=== PATIENT | female | born 1980 | race Caucasian/White ===

== ENCOUNTER 2019-03-13 17:13 | Emergency (ER) | payer OTHER, BC, SELFPAY ==
[2019-03-13 17:36] VITALS: BP 141/89; PULSE 100; RESP 18; TEMP 37.1; O2SAT 98
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
[2019-03-13 18:13] VITALS: BP 129/92; PULSE 76; RESP 16; O2SAT 98
== END 2019-03-13 18:18 | disposition home or self-care (01) ==
PROVIDERS: Emergency Provider Nurse Practitioner; PCP Family Medicine
DX: S13.4XXA Sprain of ligaments of cervical spine, initial encounter (principal); S39.012A Strain of muscle, fascia and tendon of lower back, initial encounter; V59.59XA Passenger in pick-up truck or van injured in collision with other motor vehicles in traffic accident, initial encounter
CPT/HCPCS: 99282; 99283

== ENCOUNTER → 2020-06-05 12:38 | Outpatient (CLI) | payer BC, SELFPAY ==
[2020-06-05 13:17] LABS: Hemoglobin A1C% w Est Avg Glu 8.4 % (4.0-6.0)
[2020-06-05 13:39] LABS: BUN Creatinine Ratio 24.4 (6-22); Blood Urea Nitrogen 21 mg/dL (7-17); Carbon Dioxide 27 mmol/L (22-32); Chloride 99 mmol/L (98-107); Cholesterol 220 mg/dL (140-199); Estimated Glomerular Filt Rate > 60.0 mL/min (>60); Glucose 328 mg/dL (70-100); HDL Cholesterol 77 mg/dL (40-60); HEMOLYSIS < 15 (0-50); LDL Cholesterol Calculated 117 mg/dL (<100); Potassium 4.1 mmol/L (3.4-5.1); Sodium 134 mmol/L (137-145); Triglycerides 128 mg/dL (35-150)
[2020-06-05 13:58] LABS: Free T4, Direct Thyroxine 1.18 ng/dL (0.78-2.19)
[2020-06-05 14:11] LABS: Thyroid Stimulating Hormone 1.18 uIU/mL (0.47-4.68)
[2020-06-05 15:28] LABS: Creatinine Urine Random 288.8 mg/dL
[2020-06-05 15:31] LABS: Microalbumi Creatinin Ratio Ur 7.9 ug/mg CR (<30); Microalbumin Urine Random 2.3 mg/dL (0-1.6)
== END ==
PROVIDERS: PCP Family Medicine; Referring Provider Internal Medicine; Visit Provider Internal Medicine
DX: E03.9 Hypothyroidism, unspecified (principal); E10.65 Type 1 diabetes mellitus with hyperglycemia
CPT/HCPCS: 36415; 80048; 80061; 82043; 82570; 83036; 84439; 84443

== ENCOUNTER → 2020-09-04 09:32 | Outpatient (CLI) | payer BC, SELFPAY ==
[2020-09-04 11:23] LABS: Hemoglobin A1C% w Est Avg Glu 8.1 % (4.0-6.0)
[2020-09-04 12:11] LABS: Cholesterol 209 mg/dL (140-199); HDL Cholesterol 75 mg/dL (40-60); LDL Cholesterol Calculated 113 mg/dL (<100); Triglycerides 106 mg/dL (35-150)
== END ==
PROVIDERS: PCP Family Medicine; Referring Provider Internal Medicine; Visit Provider Internal Medicine
DX: E78.5 Hyperlipidemia, unspecified (principal)
CPT/HCPCS: 36415; 80061; 83036

== ENCOUNTER → 2020-12-09 09:11 | Outpatient (CLI) | payer BC, SELFPAY ==
[2020-12-09 11:17] LABS: Blood Urea Nitrogen 20 mg/dL (7-17); Calcium 9.6 mg/dL (8.4-10.2); Carbon Dioxide 26 mmol/L (22-32); Chloride 104 mmol/L (98-107); Cholesterol 223 mg/dL (140-199); Estimated Glomerular Filt Rate > 60.0 mL/min (>60); Glucose 85 mg/dL (70-100); HDL Cholesterol 80 mg/dL (40-60); HEMOLYSIS < 15 (0-50); LDL Cholesterol Calculated 128 mg/dL (<100); Potassium 4.6 mmol/L (3.4-5.1); Sodium 137 mmol/L (137-145); Triglycerides 73 mg/dL (35-150)
[2020-12-09 11:18] LABS: Hemoglobin A1C% w Est Avg Glu 7.7 % (4.0-6.0)
== END ==
PROVIDERS: PCP Family Medicine; Referring Provider Internal Medicine; Visit Provider Internal Medicine
DX: E10.65 Type 1 diabetes mellitus with hyperglycemia (principal)
CPT/HCPCS: 36415; 80048; 80061; 83036

== ENCOUNTER → 2021-03-31 10:56 | Outpatient (CLI) | payer OTHER, SELFPAY ==
[2021-03-31 12:11] LABS: Hemoglobin A1C% w Est Avg Glu 7.4 % (4.0-6.0)
[2021-03-31 12:12] LABS: Cholesterol 150 mg/dL (140-199); HDL Cholesterol 83 mg/dL (40-60); LDL Cholesterol Calculated 49 mg/dL (<100); Triglycerides 88 mg/dL (35-150)
== END ==
PROVIDERS: PCP Family Medicine; Referring Provider Internal Medicine; Visit Provider Internal Medicine
DX: E10.65 Type 1 diabetes mellitus with hyperglycemia (principal)
CPT/HCPCS: 36415; 80061; 83036

== ENCOUNTER 2021-08-20 10:43 | Emergency (ER) | payer OTHER, SELFPAY ==
[2021-08-20 11:10] VITALS: BP 161/85; PULSE 92; RESP 18; TEMP 37.1; O2SAT 99; BMI 30.5
[2021-08-20] MEDS: TET,DIPH,PERTUSS(ACELL),VAC/PF 0.5 ML SYRINGE IM (12:27)
--- NOTE | 2021-08-20 12:36 | ED_ITS ---
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 Patient states that the dog got its leg caught in the fence and turned around and bit her thinking it was being attacked, she knows that this dog is up-to-date on its rabies vaccination. The dog was not unnecessarily provoked, the patient states that the dog actually got hurt also. And patient was wearing jeans at the time has several small puncture wounds to the left lower aspect of her leg. She states 1 of them in was bleeding for a long time and to pressure to get it to stop. Patient is a diabetic type 1 with an insulin pump. Patient is allergic to penicillin, states she does not remember when her last tetanus was and is willing to update this today. Related Data Home Medications Medication Instructions Recorded Confirmed ACETAMINOPHEN (#TYLENOL) 0 mg PO PRN #0 03/25/11 04/12/21 CHOLECALCIFEROL (VITAMIN D3) 4,000 iu PO Q DAY #0 01/09/12 04/12/21 (Vitamin D) Previous Rx's Medication Instructions Recorded insulin aspart U-100 100 unit/mL 50 - 60 u SQ SEE INSTRUCTIONS #6 05/30/16 subcutaneous solution (Novolog vial U-100 Insulin aspart) [Jorje ContourTestStr] box 5XD #200 09/18/16 loratadine-pseudoephedrine ER 10 1 tab PO QDAY #90 tab 06/27/17 mg-240 mg tablet,extended [id number] (Claritin-D 24 Hour) cyclobenzaprine 10 mg tablet 10 mg PO TID #14 tab 03/13/19 azelastine 137 mcg (0.1 %) nasal 1 spray INTRANASAL BID #30 ml 10/21/20 spray aerosol prednisone 20 mg tablet 20 mg PO DAILY #5 tab 03/27/21 fluoxetine 40 mg capsule See Rx Instructions .ROUTE 04/09/21 .COMPLEX #90 cap levothyroxine 25 mcg tablet See Rx Instructions .ROUTE 06/25/21 .COMPLEX #90 tab albuterol sulfate 90 mcg/actuation See Rx Instructions .ROUTE 06/29/21 aerosol inhaler .COMPLEX #18 g spironolactone 50 mg tablet See Rx Instructions .ROUTE 07/25/21 .COMPLEX #90 tab doxycycline hyclate 100 mg tablet 100 mg PO BID 5 Days #10 tab 08/20/21 mupirocin 2 % topical ointment 1 applic TOPICAL BID #15 g 08/20/21 Allergies Allergy/AdvReac Type Severity Reaction Status Date / Time Penicillins [PENICILLINS] Allergy Unknown Verified 08/20/21 11:10 Review of Systems <GABI Morrow - Last Filed: 08/20/21 15:24> Review of Systems Narrative: General: denies fever, chills, malaise, sweats, fatigue Head/Neck: denies headache, neck pain, dizziness Eyes: denies visual changes, eye pain Cardio: denies chest pain, palpitations, edema Respiratory: denies dyspnea, cough, orthopnea GI: denies abdominal pain, nausea, vomiting, or diarrhea : denies dysuria, hematuria, urinary retention, frequency or incontinence MSK: denies joint pain, muscle weakness Skin: denies rash, itching, multiple puncture wounds the posterior aspect of her left lower leg Neuro: denies numbness, tingling Patient History <GABI Morrow - Last Filed: 08/20/21 15:24> Medical History Anxiety Hypothyroidism Type 1 diabetes mellitus Surgical History History of third molar tooth extraction Family History Sister Age: 34 OCD (obsessive compulsive disorder) Anorexia Social History marital status: number of children: 2 household members: family lives independently: Yes caregiver/support person: No housing: house education level: college occupational status: employed Smoking Status: Never smoker second hand exposure: No alcohol intake: current substance use type: does not use Smoking Status: Never smoker Substance Use Type: does not use Exam <ARMANI MorrowP - Last Filed: 08/20/21 15:24> Narrative Exam Narrative: Independently reviewed vitals signs and nursing notes. General: cooperative, comfortable, in no acute distress, well developed and well groomed Head: atraumatic, symmetrical facial expressions Neck: supple, atraumatic, without lymphadenopathy. Eyes: pupils equal round and reactive, EOMI, conjunctiva normal Nose: nares patent, no rhinorrhea Mouth/Throat: uvula midline, moist mucus membranes Cardiovascular: regular rate and rhythm, no peripheral edema, warm extremities Respiratory: normal effort, able to speak in complete sentences, no audible wheezing, stridor, or rales. No retractions or tachypnea. MSK: moves all extremities, ambulatory w/steady gait, neurovascularly intact, no weakness Skin: brisk capillary refill, no rash, no erythema, left lower extremity with 1 2 cm puncture wound to the posterior aspect just above her calf near her knee, bleeding is controlled but the subcutaneous tissue was showing, 1 puncture wound on the lateral aspect of her left her leg is losing blood, requires manual pressure, approximately 1 cm. Other puncture wounds are superficial, not bleeding, all wounds were cleaned with normal saline by myself, thoroughly irrigated. After closer appearance, the posterior puncture wound of 2 cm and the lateral wound both need suture repair. I completed this with 2 loose sutures to the posterior 2 cm laceration and 1 loose suture to the lateral leg wound. Patient tolerated well Neuro: normal speech and cognition, A&O x3, normal tone Psych: mental status is grossly normal, congruent mood, normal affect, pleasant and cooperative Initial Vital Signs Initial Vital Signs: Vital Signs Temperature 98.7 F 08/20/21 11:10 Pulse Rate 92 H 08/20/21 11:10 Respiratory Rate 18 08/20/21 11:10 Blood Pressure 161/85 H 08/20/21 11:10 Pulse Oximetry 99 08/20/21 11:10 <Serina Wood DO - Last Filed: 08/21/21 19:22> Initial Vital Signs Initial Vital Signs: Vital Signs Temperature 98.7 F 08/20/21 11:10 Pulse Rate 92 H 08/20/21 11:10 Respiratory Rate 18 08/20/21 11:10 Blood Pressure 161/85 H 08/20/21 11:10 Pulse Oximetry 99 08/20/21 11:10 Procedures <ARMANI MorrowP - Last Filed: 08/20/21 15:24> Laceration Repair Laceration 1: Site: lower extremity Side (If applicable): left Size (cm): 2 Description: irregular Depth: simple, single layer Local Anesthetic: lidocaine 1% and with bicarb Amount of anesthesia used (mL): 1 Pre-repair: wound explored, irrigated extensively and deep structures intact Skin layer closed with: nylon Skin layer suture size: 5-0 Number of sutures: 2 Technique: simple, interrupted (Loose stitch to allow for drainage) and other Laceration 2: Site: lower extremity Side (If applicable): left (Lateral) Size (cm): 1 Description: irregular Depth: simple, single layer Local Anesthetic: lidocaine 1% and with bicarb Amount of anesthesia used (mL): 1 Pre-repair: wound explored, irrigated extensively and deep structures intact Skin layer closed with: nylon Skin layer suture size: 5-0 Number of sutures: 1 Technique: simple, interrupted (Loose stitch) Course <Raya Nix PROFILER - Last Filed: 08/20/21 15:24> Orders Ordered: Discontinued Medications Bacitracin (Bacitracin Oint 0.9 Gm Pckt) 1 applic TOP NOW ONE Stop: 08/20/21 12:36 Last Admin: 08/20/21 13:04 Dose: 1 applic Documented by: SYDNEY Diphtheria/Tetanus/Acell Pertussis (Tet,Diph,Pertuss(Acell),Vac/Pf 0.5 Ml Syringe) 0.5 ml IM .ONCE ONE Stop: 08/20/21 11:18 Last Admin: 08/20/21 12:27 Dose: 0.5 ml Documented by: SHANIKA Lidocaine/Sodium Bicarbonate (Lido 1%/Sod Bicarb 8.4% (10ml) 10 Ml Syringe) 10 ml INJ NOW ONE Stop: 08/20/21 12:45 Last Admin: 08/20/21 13:03 Dose: 10 ml Documented by: SYDNEY Vital Signs Vital signs: Vital Signs - 8 hr 08/20/21 11:10 Temperature 98.7 F Pulse Rate 92 H Respiratory Rate 18 Blood Pressure 161/85 H Pulse Oximetry 99 <Serina Wood DO - Last Filed: 08/21/21 19:22> Orders Ordered: Discontinued Medications Bacitracin (Bacitracin Oint 0.9 Gm Pckt) 1 applic TOP NOW ONE Stop: 08/20/21 12:36 Last Admin: 08/20/21 13:04 Dose: 1 applic Documented by: SYDNEY Diphtheria/Tetanus/Acell Pertussis (Tet,Diph,Pertuss(Acell),Vac/Pf 0.5 Ml Syringe) 0.5 ml IM .ONCE ONE Stop: 08/20/21 11:18 Last Admin: 08/20/21 12:27 Dose: 0.5 ml Documented by: SHANIKA Lidocaine/Sodium Bicarbonate (Lido 1%/Sod Bicarb 8.4% (10ml) 10 Ml Syringe) 10 ml INJ NOW ONE Stop: 08/20/21 12:45 Last Admin: 08/20/21 13:03 Dose: 10 ml Documented by: SYDNEY Vital Signs Vital signs: Vital Signs - 8 hr 08/20/21 11:10 Temperature 98.7 F Pulse Rate 92 H Respiratory Rate 18 Blood Pressure 161/85 H Pulse Oximetry 99 MDM - Animal Bite <GABI Morrow - Last Filed: 08/20/21 15:24> [facility] Narrative Medical decision making narrative: This is a 41-year-old female with history of type 1 diabetes on insulin pump who presents to the emergency department after dog bite to her left lower extremity. 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 Otherwise the dog was up throat, rabies vaccination is up-to-date for the dog. Patient's tetanus was updated today, she required 2 sutures to the 2 cm laceration to the posterior calf of her left lower extremity, and once loose suture to the lateral wound on the right due to subcutaneous tissue showing, and bleeding. These were cleaned well with normal saline, patient was given doxycycline prophylaxis for 5 days and mupirocin ointment. She became faint during the procedure, was [place] back, was given water and juice, tolerated this well, her blood sugar was stable in she was comfortable by the time of discharge without any falls. She did not have any vomiting. Patient is appropriate and amenable to discharge home. Vital signs are stable on repeat examination is unremarkable. Patient has been informed of results. Patient has been given strict return to ER precautions for any new or worsening symptoms. Patient understands to follow up closely with outpatient providers as instructed. Patient understands plan and agrees to discharge home. All questions and concerns answered at this time. Discharge Plan Departure Patient Disposition: Home Clinical Impression: Open wound of lower leg due to dog bite Instructions: DI for Dog Bite Activity Restrictions/Additional Instructions: *You have been diagnosed with puncture wounds to her left leg. Please keep these covered with a Band-Aid some antibiotic ointment. Your tetanus is good for the next 10 years, and doxycycline as recommended for 3-5 days. Due to the number of these, all DP the full course. Please shower as normal, try to avoid contaminating open wounds. Please follow-up with your primary care provider if you have any complications from this. If you notice any streaking or worsening redness, pus coming from these wounds, please continue taking your antibiotic for the full course and come back for another evaluation. Please try stay hydrated while taking medications. 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 *What to do: *Please continue to take your regular medications as directed. [ x] New medication prescriptions sent to your pharmacy: [[facility] ] [ ] New medication written as a paper prescription [ ] No new medications given *Please follow up with your primary care provider in 2-3 days, call for an appointment. Let them know you were seen in the Emergency Department and that we asked that you be seen for follow-up. We will electronically transmit a record of today's note if your PCP is in our system *If you do not have a primary care provider please contact [phone] to establish care with one of the [facility] primary care providers. *Return to Emergency Department if you should have any new, worsening or concerning symptoms, such as [fever greater than 101F, chills, worsening pain, persistent vomiting or other bothersome symptoms] Prescriptions: New doxycycline hyclate 100 mg tablet 100 mg PO BID 5 Days Qty: 10 0RF mupirocin 2 % ointment 1 applic topical BID Qty: 15 0RF No Action prednisone 20 mg tablet 20 mg PO DAILY Qty: 5 0RF azelastine 137 mcg (0.1 %) aerosol,spray 1 spray intranasal BID Qty: 30 0RF Rx Instructions: administer into each nostril ACETAMINOPHEN (#TYLENOL) 0 mg PO PRN Qty: 0 0RF CHOLECALCIFEROL (VITAMIN D3) (Vitamin D) 4,000 iu PO Q DAY Qty: 0 0RF insulin aspart U-100 [Novolog U-100 Insulin aspart] 100 UNIT/1 ML solution 50 - 60 u SQ SEE INSTRUCTIONS Qty: 6 3RF [Jorje ContourTestStr] 5XD Qty: 200 1RF loratadine-pseudoephedrine [Claritin-D 24 Hour] 10 MG/240 MG tablet extended release 24 hr 1 tab PO QDAY Qty: 90 3RF fluoxetine 40 mg capsule See Rx Instructions .ROUTE .COMPLEX Qty: 90 3RF Dose Instruction: TAKE 1 CAPSULE BY MOUTH DAILY Rx Instructions: TAKE 1 CAPSULE BY MOUTH DAILY levothyroxine 25 mcg tablet See Rx Instructions .ROUTE .COMPLEX Qty: 90 3RF Dose Instruction: TAKE 1 TABLET BY MOUTH EVERY MORNING Rx Instructions: TAKE 1 TABLET BY MOUTH EVERY MORNING albuterol sulfate 90 mcg/actuation HFA aerosol inhaler See Rx Instructions .ROUTE .COMPLEX Qty: 18 3RF Dose Instruction: INHALE 2 PUFFS INTO THE LUNGS EVERY 6 TO 8 HOURS NEEDED FOR SHORTNESS OF BREATH OR WHEEZING Rx Instructions: INHALE 2 PUFFS INTO THE LUNGS EVERY 6 TO 8 HOURS NEEDED FOR SHORTNESS OF BREATH OR WHEEZING spironolactone 50 mg tablet See Rx Instructions .ROUTE .COMPLEX Qty: 90 1RF Dose Instruction: TAKE 1 TABLET BY MOUTH DAILY Rx Instructions: TAKE 1 TABLET BY MOUTH DAILY cyclobenzaprine 10 mg tablet 10 mg PO TID Qty: 14 0RF Referrals: Ally Soriano MD [Primary Care Provider] - <Serina Wood DO - Last Filed: 08/21/21 19:22> Cosign ED Attending Cosopalature Attestation: I was immediately available in the department for consultation. Documentation has been reviewed.
[2021-08-20] MEDS: LIDO 1%/SOD BICARB 8.4% (10ML) 10 ML SYRINGE INJ (13:03)
[2021-08-20] MEDS: BACITRACIN OINT 0.9 GM PCKT 1 APPLIC TOP (13:04)
== END 2021-08-20 13:25 | disposition home or self-care (01) ==
PROVIDERS: Emergency Provider Nurse Practitioner Critical Care Medicine; PCP Family Medicine
DX: S81.852A Open bite, left lower leg, initial encounter (principal); W54.0XXA Bitten by dog, initial encounter; Y99.0 Civilian activity done for income or pay; Z23 Encounter for immunization
CPT/HCPCS: 12002; 90471; 99283; 90715

== ENCOUNTER 2022-01-04 10:36 | Emergency (ER) | payer OTHER, SELFPAY ==
[2022-01-04 10:38] VITALS: BP 137/84; PULSE 90; RESP 15; TEMP 36; O2SAT 96; BMI 30.5
--- NOTE | 2022-01-04 10:41 | DI.RAD.S_ITS ---
PROCEDURE: XR HAND RT MIN 3V INDICATIONS: dog bite, laceration top of hand TECHNIQUE: 3 views of the hand(s) acquired. COMPARISON: None. FINDINGS: Bones: No fractures or dislocations. Carpal bones are normally aligned. No suspicious bony lesions. Soft tissues: No suspicious soft tissue calcifications. No unexpected radiopaque foreign bodies. IMPRESSION: No suspicious bony lesions or unexpected radiopaque foreign bodies. Dictated by: Wendy Olmstead M.D. on 01/04/2022 at 10:59 Approved by: Wendy Olmstead M.D. on 01/04/2022 at 10:59
--- NOTE | 2022-01-04 13:07 | ED_ITS ---
HPI - Animal Bite <Ramsey Michelle PA-C - Last Filed: 01/04/22 20:14> General Chief Complaint: Animal Bite Stated Complaint: Dog bite Time Seen by Provider: 01/04/22 12:05 Source: patient Mode of arrival: Ambulatory History of Present Illness HPI narrative: Patient is a 41-year-old female who presents to the emergency room today with complaint of laceration to her right hand. Patient states she was bit by a dog at about 10:30 a.m. this morning as she runs a dog care facility. Patient admits to having a Tdap done in June of this year that was also related to a prior dog bite. Took antibiotics at that time and was seen at this ER no concerns. Patient also admits to a history of type 2 diabetes is well controlled on meds and also admits to an allergy to penicillin. Related Data Home Medications Medication Instructions Recorded Confirmed ACETAMINOPHEN (#TYLENOL) 0 mg PO PRN ##0 03/25/11 08/27/21 CHOLECALCIFEROL (VITAMIN D3) 4,000 iu PO Q DAY ##0 01/09/12 08/27/21 (Vitamin D) Previous Rx's Medication Instructions Recorded insulin aspart U-100 100 unit/mL 50 - 60 u SQ SEE INSTRUCTIONS #6 05/30/16 subcutaneous solution (Novolog vials U-100 Insulin aspart) [Jorje ContourTestStr] box 5XD ##200 09/18/16 loratadine-pseudoephedrine ER 10 1 tab PO QDAY #90 tabs 06/27/17 mg-240 mg tablet,extended [id number] (Claritin-D 24 Hour) cyclobenzaprine 10 mg tablet 10 mg PO TID Muscle spasm #14 tabs 03/13/19 azelastine 137 mcg (0.1 %) nasal 1 spray intranasal BID #30 mL 10/21/20 spray aerosol prednisone 20 mg tablet 20 mg PO DAILY #5 tabs 03/27/21 fluoxetine 40 mg capsule See Rx Instructions .Route 04/09/21 .COMPLEX #90 caps levothyroxine 25 mcg tablet See Rx Instructions .Route 06/25/21 .COMPLEX #90 tabs albuterol sulfate 90 mcg/actuation See Rx Instructions .Route 06/29/21 aerosol inhaler .COMPLEX #18 grams spironolactone 50 mg tablet See Rx Instructions .Route 07/25/21 .COMPLEX #90 tabs mupirocin 2 % topical ointment 1 applic topical BID #15 grams 08/20/21 doxycycline hyclate 100 mg capsule 100 mg PO BID #10 caps 01/04/22 Allergies Allergy/AdvReac Type Severity Reaction Status Date / Time Penicillins [PENICILLINS] Allergy Unknown Verified 01/04/22 10:38 Review of Systems <Ramsey Michelle PA-C - Last Filed: 01/04/22 20:14> Review of Systems Narrative: R.O.S.: General: No fever, chills or fatigue. Cardiovascular: No chest pain or palpitations Respiratory: No S.O.B. HEENT: No congestion, ear pain, rhinorrhea, sore throat or tinnitus Gastrointestinal: No nausea or vomiting Skin: Laceration to right hand. Musculoskeletal: No pain in muscles or joints, no limitation of range of motion, no paresthesia or numbness. ?? Neurological: Awake, alert and in not apparent distress. No Headaches, changes in vision or other related neurological concerns. Patient History <Ramsey Michelle PA-C - Last Filed: 01/04/22 20:14> Medical History (Updated 01/04/22 @ 14:12 by Ramsey Michelle PA-C) Anxiety Hypothyroidism Type 1 diabetes mellitus Surgical History History of third molar tooth extraction Family History Sister Age: 34 OCD (obsessive compulsive disorder) Anorexia Social History marital status: number of children: 2 household members: family lives independently: Yes caregiver/support person: No housing: house education level: college occupational status: employed Smoking Status: Never smoker second hand exposure: No alcohol intake: current substance use type: does not use Smoking Status: Never smoker alcohol intake frequency: holidays/special occasions only Substance Use Type: does not use Exam <Ramsey Michelle PA-C - Last Filed: 01/04/22 20:14> Narrative Exam Narrative: Physical Exam: ? General: normal appearance, well developed, well nourished, alert, and awake. Not in acute distress. ? Head: Normocephalic, no lesions. Chest: Lungs CTAB, no rales, rhonchi or wheezes. ?? Heart: RRR, no murmurs, rubs or gallops. Eyes: PERRLA, EOM's full, conjunctivae clear. ? Neuro: Physiological, no localizing findings, CN3-12 intact. ?? Extremities: Warm, well perfused, FROM, no deformities, no edema. ?? Skin: Patient has a laceration on the dorsal right hand. The laceration is in the metacarpal area. On the mid hand at the mid metacarpal bone of the middle finger. The laceration has 1 jagged edge and is about 5 cm in total length. The area has minimal bleeding, minor swelling and moderate erythema at this time. PSYCHIATRIC: The mood is good, no blunted affect. Speech is clear. Thought process is linear, thought content is appropriate. The voice is without significant inflection. Gastrointestinal: Soft; NT; ND; Pos BS with Neg. rebound tenderness. No scars or major deformities noted on Visual Inspection. Initial Vital Signs Initial Vital Signs: Vital Signs Temperature 96.8 F L 01/04/22 10:38 Pulse Rate 90 01/04/22 10:38 Respiratory Rate 15 01/04/22 10:38 Blood Pressure 137/84 01/04/22 10:38 Pulse Oximetry 96 01/04/22 10:38 Oxygen Delivery Method 01/04/22 10:38 <Naveen Umaña DO - Last Filed: 01/05/22 13:29> Initial Vital Signs Initial Vital Signs: Vital Signs Temperature 96.8 F L 01/04/22 10:38 Pulse Rate 90 01/04/22 10:38 Respiratory Rate 15 01/04/22 10:38 Blood Pressure 137/84 01/04/22 10:38 Pulse Oximetry 96 01/04/22 10:38 Oxygen Delivery Method 01/04/22 10:38 Procedures <Ramsey Michelle PA-C - Last Filed: 01/04/22 20:14> Laceration Repair Laceration 1: Site: hand Side (If applicable): right Size (cm): 5 Description: irregular Depth: simple, single layer Local Anesthetic: lidocaine 2% Amount of anesthesia used (mL): 5 Pre-repair: irrigated extensively Skin layer closed with: nylon Skin layer suture size: 4-0 Number of sutures: 8 Technique: simple, interrupted Course <Rmasey Michelle PA-C - Last Filed: 01/04/22 20:14> Orders Ordered: Discontinued Medications Bacitracin (Bacitracin Oint 0.9 Gm Pckt) 2 applic TOP NOW ONE Stop: 01/04/22 13:25 Last Admin: 01/04/22 13:49 Dose: 2 applic Documented By: AT Lidocaine HCl (Lidocaine 2% (Glydo) 6 Ml Gel) 5 ml TOP NOW ONE Stop: 01/04/22 13:23 Last Admin: 01/04/22 13:48 Dose: Not Given Documented By: AT Lidocaine HCl (Lidocaine 2% Inj Mdv 20ml) 5 ml SUBCUT NOW ONE Stop: 01/04/22 13:31 Last Admin: 01/04/22 13:50 Dose: Not Given Documented By: AT Vital Signs Vital signs: Vital Signs - 8 hr 01/04/22 14:44 Pulse Rate 77 Respiratory Rate 16 Blood Pressure 128/72 Pulse Oximetry 97 Oxygen Delivery Method Room Air <Naveen Umaña DO - Last Filed: 01/05/22 13:29> Orders Ordered: Discontinued Medications Bacitracin (Bacitracin Oint 0.9 Gm Pckt) 2 applic TOP NOW ONE Stop: 01/04/22 13:25 Last Admin: 01/04/22 13:49 Dose: 2 applic Documented By: AT Lidocaine HCl (Lidocaine 2% (Glydo) 6 Ml Gel) 5 ml TOP NOW ONE Stop: 01/04/22 13:23 Last Admin: 01/04/22 13:48 Dose: Not Given Documented By: AT Lidocaine HCl (Lidocaine 2% Inj Mdv 20ml) 5 ml SUBCUT NOW ONE Stop: 01/04/22 13:31 Last Admin: 01/04/22 13:50 Dose: Not Given Documented By: AT Vital Signs Vital signs: Vital Signs - 8 hr 01/04/22 14:44 Pulse Rate 77 Respiratory Rate 16 Blood Pressure 128/72 Pulse Oximetry 97 Oxygen Delivery Method Room Air MDM - Animal Bite <Ramsey Michelle PA-C - Last Filed: 01/04/22 20:14> Imaging Data Extremity x-ray #1: Radiologist's Impression: PROCEDURE:? XR HAND RT MIN 3V ? INDICATIONS:? dog bite, laceration top of hand ? TECHNIQUE:? 3 views of the hand(s) acquired.? ? COMPARISON:? None. ? FINDINGS:? ? Bones:? No fractures or dislocations.? Carpal bones are normally aligned.? No suspicious bony lesions.? ? Soft tissues:? No suspicious soft tissue calcifications.? No unexpected radiopaque foreign bodies. ? ? IMPRESSION:? No suspicious bony lesions or unexpected radiopaque foreign bodies. ? ? Dictated by: Wendy Olmstead M.D. on 01/04/2022 at 10:59 ? ? Approved by: Wendy Olmstead M.D. on 01/04/2022 at 10:59? MDM Narrative Medical decision making narrative: Patient is a 41-year-old female who presents to the emergency room today with complaint of a dog bite to her right hand. Physical exam revealed a irregular 5 cm laceration to the right dorsal hand. The area was extensively lavaged cleaned and 8 sutures were used to close the laceration. Dressing was applied and antibiotics were issued patient instructed on care and advised to return should any emergent concerns arise patient agrees plan. Discharge Plan Departure Patient Disposition: Home Clinical Impression: Dog bite Instructions: DI for Animal Bites, DI for Dog Bite Activity Restrictions/Additional Instructions: *You have been diagnosed with laceration after a dog bite to the right hand. Eight single interrupted sutures were inserted to close the irregular laceration to your right hand. Antibiotic ointment and dressing was applied you were issued additional cleaning supplies and care instructions. I suggest she return to the emergency room in 7 days for suture removal. Also suggest she keep the area clean and free from any excessive moisture or foreign body. I also suggest she return to the emergency room if any emergent concerns arise. [ ] *What to do: *Please continue to take your regular medications as directed. [x] New medication prescriptions sent to your pharmacy: [ ] [ ] New medication written as a paper prescription [ ] No new medications given *Please follow up with your primary care provider in 2-3 days, call for an appointment. Let them know you were seen in the Emergency Department and that we ask that you be seen in follow up. We will electronically transmit a record of today's note if your PCP is in our system *If you do not have a primary care provider please contact the [facility] Resource line at [phone]. They will ask some questions about your medical history and help get you set up with a doctor in the community. *Return to Emergency Department if you should have any new, worsening or concerning symptoms, such as [fever greater than 101 F, shaking chills, worsening pain, persistent vomiting or other bothersome symptoms] Prescriptions: New doxycycline hyclate 100 mg capsule 100 mg PO BID Qty: 10 0RF No Action prednisone 20 mg tablet 20 mg PO DAILY Qty: 5 0RF azelastine 137 mcg (0.1 %) aerosol,spray 1 spray intranasal BID Qty: 30 0RF Rx Instructions: administer into each nostril ACETAMINOPHEN (#TYLENOL) 0 mg PO PRN Qty: 0 CHOLECALCIFEROL (VITAMIN D3) (Vitamin D) 4,000 iu PO Q DAY Qty: 0 insulin aspart U-100 [Novolog U-100 Insulin aspart] 100 UNIT/1 ML solution 50 - 60 u SQ SEE INSTRUCTIONS Qty: 6 3RF [Jorje ContourTestStr] 5XD Qty: 200 1RF loratadine-pseudoephedrine [Claritin-D 24 Hour] 10 MG/240 MG tablet extended release 24 hr 1 tab PO QDAY Qty: 90 3RF fluoxetine 40 mg capsule See Rx Instructions .ROUTE .COMPLEX Qty: 90 3RF Dose Instruction: TAKE 1 CAPSULE BY MOUTH DAILY Rx Instructions: TAKE 1 CAPSULE BY MOUTH DAILY levothyroxine 25 mcg tablet See Rx Instructions .ROUTE .COMPLEX Qty: 90 3RF Dose Instruction: TAKE 1 TABLET BY MOUTH EVERY MORNING Rx Instructions: TAKE 1 TABLET BY MOUTH EVERY MORNING albuterol sulfate 90 mcg/actuation HFA aerosol inhaler See Rx Instructions .ROUTE .COMPLEX Qty: 18 3RF Dose Instruction: INHALE 2 PUFFS INTO THE LUNGS EVERY 6 TO 8 HOURS NEEDED FOR SHORTNESS OF BREATH OR WHEEZING Rx Instructions: INHALE 2 PUFFS INTO THE LUNGS EVERY 6 TO 8 HOURS NEEDED FOR SHORTNESS OF BREATH OR WHEEZING spironolactone 50 mg tablet See Rx Instructions .ROUTE .COMPLEX Qty: 90 1RF Dose Instruction: TAKE 1 TABLET BY MOUTH DAILY Rx Instructions: TAKE 1 TABLET BY MOUTH DAILY cyclobenzaprine 10 mg tablet 10 mg PO TID Qty: 14 0RF mupirocin 2 % ointment 1 applic topical BID Qty: 15 0RF Referrals: Ally Soriano MD [Primary Care Provider] - Visit Report Forms: Patient Portal/API <Naveen Lanker, DO - Last Filed: 01/05/22 13:29> Cosign ED Attending Cosignature Attestation: Dr Umaña Co-Sign Statement: I was available for consultation during this patient's emergency department visit. This chart is signed by myself for administrative purposes only. I did not have direct contact with this patient during this visit. They were seen independently by the APC.
[2022-01-04] MEDS: BACITRACIN OINT 0.9 GM PCKT 2 APPLIC TOP (13:49)
[2022-01-04] MEDS: LIDOCAINE 2% INJ SDV 5 ML (13:50)
--- NOTE | 2022-01-04 14:42 | PC.NURSE ---
Pt's wound cleaned and sutured by PA. ABX ointment applied and telfa placed and wrapped with gauze. pt given extra supplies to go home with. no further questions regarding care. tetanus UTD.
[2022-01-04 14:44] VITALS: BP 128/72; PULSE 77; RESP 16; O2SAT 97
== END 2022-01-04 14:53 | disposition home or self-care (01) ==
PROVIDERS: Emergency Provider Physician Assistant; PCP Family Medicine
DX: S61.451A Open bite of right hand, initial encounter (principal); W54.0XXA Bitten by dog, initial encounter
CPT/HCPCS: 12002; 73130; 99282; 99283

== ENCOUNTER → 2022-09-19 09:20 | Outpatient (CLI) | payer OTHER, SELFPAY ==
[2022-09-19 09:58] LABS: Add Manual Diff / Slide Review NO; Basophils Absolute Auto 100 /uL (0-100); Basophils Percent Auto 0.8 % (0-2); Eosinophils Absolute Auto 300 /uL (0-450); Eosinophils Percent Auto 3.9 % (2-4); Hematocrit 41.8 % (36-46); Lymphocytes Absolute Auto 1900 /uL (1100-4500); Lymphocytes Percent Auto 22.3 % (25-40); Mean Corpuscular HGB Conc 33.5 % (30-36); Mean Corpuscular Hemoglobin 30.6 PG (26-34); Mean Corpuscular Volume 91.3 fL (80-100); Monocytes Absolute Auto 700 /uL (0-900); Monocytes Percent Auto 8.3 % (3-14); Neutrophils Absolute Auto 5600 /uL (1500-7000); Neutrophils Percent Auto 64.7 % (50-75); Platelet Count 311 X10^3/uL (150-400); Red Blood Cell Count 4.58 X10^6/uL (4.0-5.2); Red Cell Distribution Width 13.2 % (11.6-14.8); White Blood Cell Count 8.7 X10^3/uL (4.5-11.0)
[2022-09-19 10:15] LABS: Alanine Aminotransferase 30 IU/L (<35); Albumin 3.9 g/dL (3.5-5.0); Albumin Globulin Ratio 1.3 (1.0-2.8); Alkaline Phosphatase 77 U/L (38-126); Aspartate Aminotransferase 28 IU/L (14-36); BUN Creatinine Ratio 20.6 (6-22); Bilirubin Total 0.8 mg/dL (0.2-1.3); Blood Urea Nitrogen 14 mg/dL (7-17); Calcium 9.1 mg/dL (8.4-10.2); Carbon Dioxide 26 mmol/L (22-32); Chloride 103 mmol/L (98-107); Cholesterol 140 mg/dL (140-199); Estimated Glomerular Filt Rate > 60 mL/min (>60); Globulin 2.9 g/dL (1.7-4.1); Glucose 101 mg/dL (70-100); HDL Cholesterol 78 mg/dL (40-60); HEMOLYSIS < 15 (0-50); LDL Cholesterol Calculated 47 mg/dL (<100); Sodium 136 mmol/L (137-145); Total Protein 6.8 g/dL (6.3-8.2); Triglycerides 74 mg/dL (35-150)
[2022-09-19 10:26] LABS: Creatinine Urine Random 158.7 mg/dL
[2022-09-19 10:37] LABS: Microalbumin Urine Random < 0.6 mg/dL (0-1.6)
[2022-09-19 10:44] LABS: TSH w/ Reflex to FT4 1.28 uIU/mL (0.47-4.68)
[2022-09-20 03:43] LABS: Labcorp Hemoglobin (Hb) A1c 8.4 % (4.8-5.6)
== END ==
PROVIDERS: PCP Family Medicine; Referring Provider Family Medicine; Visit Provider Family Medicine
DX: E03.9 Hypothyroidism, unspecified (principal); E10.9 Type 1 diabetes mellitus without complications; J45.901 Unspecified asthma with (acute) exacerbation
CPT/HCPCS: 36415; 80053; 80061; 82043; 82570; 83036; 84443; 85025

== ENCOUNTER 2023-04-03 10:15 | Emergency (ER) | payer OTHER, SELFPAY ==
[2023-04-03] VITALS (7 sets, daily range): BP systolic 127–189; BP diastolic 70–90; PULSE 82–99; RESP 16–20; TEMP 36.8; O2SAT 94–99; BMI 30.5
--- NOTE | 2023-04-03 10:37 | DI.RAD.S_ITS ---
PROCEDURE: XR CHEST 1V INDICATIONS: chest pain TECHNIQUE: One view of the chest was acquired. COMPARISON: None. FINDINGS: Surgical changes and devices: None. Lungs and pleura: Lungs are clear. No pleural effusions or pneumothorax. Mediastinum: Mediastinal contours appear normal. Heart size is normal. Bones and chest wall: No suspicious bony lesions. Overlying soft tissues appear unremarkable. IMPRESSION: No evidence acute pulmonary process. Dictated by: Vinnie Valdez M.D. on 04/03/2023 at 12:06 Approved by: Vinnie Valdez M.D. on 04/03/2023 at 12:06
[2023-04-03 10:43] LABS: Add Manual Diff / Slide Review NO; Basophils Absolute Auto 100 /uL (0-100); Basophils Percent Auto 0.9 % (0-2); Eosinophils Absolute Auto 100 /uL (0-450); Eosinophils Percent Auto 1.7 % (2-4); Hematocrit 41.3 % (36-46); Hemoglobin 13.7 g/dL (12.0-16.0); Lymphocytes Absolute Auto 1600 /uL (1100-4500); Lymphocytes Percent Auto 24.4 % (25-40); Mean Corpuscular HGB Conc 33.2 % (30-36); Mean Corpuscular Hemoglobin 30.3 PG (26-34); Mean Corpuscular Volume 91.1 fL (80-100); Monocytes Absolute Auto 500 /uL (0-900); Monocytes Percent Auto 7.5 % (3-14); Neutrophils Absolute Auto 4200 /uL (1500-7000); Neutrophils Percent Auto 65.5 % (50-75); Platelet Count 300 X10^3/uL (150-400); Red Blood Cell Count 4.53 X10^6/uL (4.0-5.2); Red Cell Distribution Width 12.9 % (11.6-14.8); White Blood Cell Count 6.4 X10^3/uL (4.5-11.0)
[2023-04-03 10:47] LABS: Prothrombin Time 11.7 SECONDS (9.4-12.5)
[2023-04-03 10:49] LABS: PTT Partial Thromboplastin Tim 29 SECONDS (25.1-36.5)
[2023-04-03 10:52] LABS: Alanine Aminotransferase 34 IU/L (<35); Albumin 4.2 g/dL (3.5-5.0); Albumin Globulin Ratio 1.3 (1.0-2.8); Alkaline Phosphatase 79 U/L (38-126); Aspartate Aminotransferase 33 IU/L (14-36); BUN Creatinine Ratio 26.4 (6-22); Bilirubin Total 0.9 mg/dL (0.2-1.3); Blood Urea Nitrogen 19 mg/dL (7-17); Calcium 9.2 mg/dL (8.4-10.2); Carbon Dioxide 27 mmol/L (22-32); Chloride 102 mmol/L (98-107); Creatine Kinase 129 U/L (30-135); Estimated Glomerular Filt Rate > 60 mL/min (>60); Globulin 3.2 g/dL (1.7-4.1); Glucose 157 mg/dL (70-100); HEMOLYSIS < 15 (0-50); Lipase 53 U/L (23-300); Magnesium 1.9 mg/dL (1.6-2.3); Potassium 3.8 mmol/L (3.4-5.1); Sodium 135 mmol/L (137-145); Total Protein 7.4 g/dL (6.3-8.2)
--- NOTE | 2023-04-03 10:59 | ED_ITS ---
HPI - General Adult General Chief complaint: Dizziness Stated complaint: nausea/ strange sensation in rib/back area Time Seen by Provider: 04/03/23 10:17 Source: patient Mode of arrival: Ambulatory History of Present Illness HPI narrative: 42-year-old female with history of type 1 diabetes presents by private vehicle from home for nausea, lightheadedness, tingling in her back that began just prior to arrival. Episode lasted for approximately 30 minutes and concerned her, and so she wanted to come to the emergency department to be evaluated. She states that the nausea and lightheadedness has passed, but she still feels a tingling and twitching sensation underneath her left scapula. Related Data Home Medications Medication Instructions Recorded Confirmed ACETAMINOPHEN (#TYLENOL) 0 mg PO PRN ##0 03/25/11 09/25/22 CHOLECALCIFEROL (VITAMIN D3) 4,000 iu PO Q DAY ##0 01/09/12 09/25/22 (Vitamin D) Previous Rx's Medication Instructions Recorded insulin aspart U-100 100 unit/mL 50 - 60 u SQ SEE INSTRUCTIONS #6 05/30/16 subcutaneous solution (Novolog vials U-100 Insulin aspart) [Jorje ContourTestStr] box 5XD ##200 09/18/16 loratadine-pseudoephedrine ER 10 1 tab PO QDAY #90 tabs 06/27/17 mg-240 mg tablet,extended [id number] (Claritin-D 24 Hour) cyclobenzaprine 10 mg tablet 10 mg PO TID Muscle spasm #14 tabs 03/13/19 azelastine 137 mcg (0.1 %) nasal 1 spray intranasal BID #30 mL 10/21/20 spray aerosol prednisone 20 mg tablet 20 mg PO DAILY #5 tabs 03/27/21 mupirocin 2 % topical ointment 1 applic topical BID #15 grams 08/20/21 levothyroxine 25 mcg tablet See Rx Instructions .Route 06/20/22 .COMPLEX #90 tabs albuterol sulfate 90 mcg/actuation 2 puff inhalation Q6-8H PRN for 01/10/23 aerosol inhaler wheezing #8.5 grams spironolactone 50 mg tablet See Rx Instructions .Route 01/22/23 .COMPLEX #90 tabs fluoxetine 40 mg capsule See Rx Instructions .Route 03/25/23 .COMPLEX #90 caps Allergies Allergy/AdvReac Type Severity Reaction Status Date / Time Penicillins [PENICILLINS] Allergy Unknown Rash Verified 04/03/23 10:32 Review of Systems Review of Systems Narrative: Negative except as noted above Patient History Medical History (Updated 04/03/23 @ 11:26 by Serina Campos MD) Hypothyroidism Anxiety Type 1 diabetes mellitus Surgical History History of third molar tooth extraction Family History Sister Age: 35 OCD (obsessive compulsive disorder) Anorexia Social History marital status: number of children: 2 household members: family lives independently: Yes caregiver/support person: No housing: house education level: college occupational status: employed Smoking Status: Never smoker second hand exposure: No alcohol intake: current substance use type: does not use Smoking Status: Never smoker alcohol intake frequency: holidays/special occasions only Substance Use Type: does not use Exam Initial Vital Signs Initial Vital Signs: Vital Signs Pulse Rate 99 H 04/03/23 10:19 Pulse Oximetry 94 04/03/23 10:19 Const: Awake, alert, no acute distress, nontoxic appearing Eyes: PERRL, EOMI, conjunctiva normal ENT: Atraumatic, dentition normal, mucous membranes moist Cardiac: regular rate, regular rhythm RESP: unlabored, clear bilaterally, no wheezing GI: Atraumatic, soft, nontender, nondistended, no rebound, no guarding MSK: Atraumatic, full range of motion, pulses equal Skin: Warm, Dry, intact, no rashes Neuro: AO x3, CN II-XII grossly intact, moves all extremities, skin sensation intact, no numbness Psych: affect normal, mood normal, not suicidal, not homicidal Course Course Course Narrative: Unexplainable episode of nausea, lightheadedness, paresthesia just prior to arrival. Patient states other than the tingling and twitching sensation underneath her scapula she feels back to normal. Physical exam is unremarkable, EKG is normal sinus rhythm without concerning findings. Laboratory work was reviewed, unremarkable. Chest x-ray reviewed, unremarkable. No obvious explanation for patient's symptoms. Supportive measures counseled at home. ED return precautions discussed at bedside. Patient expressed understanding of the plan and is in agreement at this time. All questions answered at the time of discharge. Orders Ordered: ED Orders 04/03/23 10:25 EKG-12 Lead Stat 04/03/23 10:32 Complete Blood Count AUTO DIFF Stat Comprehensive Metabolic Panel Stat Lipase Stat Magnesium Stat PTT Partial Thromboplastin Ricci Stat Prothrombin Time INR Stat Troponin & CK Cardiac Panel Stat 04/03/23 10:37 XR chest 1V Stat Vital Signs Vital signs: Vital Signs - 8 hr 04/03/23 10:19 04/03/23 10:20 04/03/23 10:20 Temperature Pulse Rate 99 H 96 H Respiratory Rate Blood Pressure 189/90 H Pulse Oximetry 94 99 Oxygen Delivery Method 04/03/23 10:22 04/03/23 10:28 04/03/23 10:32 Temperature 98.2 F Pulse Rate 82 98 H Respiratory Rate 16 Blood Pressure 189/90 H 127/89 Pulse Oximetry 98 99 Oxygen Delivery Method Room Air 04/03/23 10:32 04/03/23 11:00 04/03/23 11:00 Temperature Pulse Rate 85 86 Respiratory Rate 20 Blood Pressure 133/76 Pulse Oximetry 99 98 Oxygen Delivery Method 04/03/23 11:30 04/03/23 11:30 Temperature Pulse Rate 88 Respiratory Rate 20 Blood Pressure 132/70 Pulse Oximetry 99 Oxygen Delivery Method Medical Decision Making Lab Data 04/03/23 10:32 04/03/23 10:32 Labs: Lab Results 04/03/23 Range/Units 10:32 WBC 6.4 (4.5-11.0) X10^3/uL RBC 4.53 (4.0-5.2) X10^6/uL Hgb 13.7 (12.0-16.0) g/dL Hct 41.3 (36-46) % MCV 91.1 (80-100) fL MCH 30.3 (26-34) PG MCHC 33.2 (30-36) % RDW 12.9 (11.6-14.8) % Plt Count 300 (150-400) X10^3/uL Neut % (Auto) 65.5 (50-75) % Lymph % (Auto) 24.4 L (25-40) % [place] % (Auto) 7.5 (3-14) % Eos % (Auto) 1.7 L (2-4) % Baso % (Auto) 0.9 (0-2) % Neut # (Auto) 4200 (5858-6670) /uL Lymph # (Auto) 1600 (4451-0302) /uL [place] # (Auto) 500 (0-900) /uL Eos # (Auto) 100 (0-450) /uL Baso # (Auto) 100 (0-100) /uL PT 11.7 (9.4-12.5) SECONDS INR 1.0 (0.9-1.3) APTT 29 (25.1-36.5) SECONDS Sodium 135 L (137-145) mmol/L Potassium 3.8 (3.4-5.1) mmol/L Chloride 102 (98-107) mmol/L Carbon Dioxide 27 (22-32) mmol/L BUN 19 H (7-17) mg/dL Creatinine 0.72 (0.52-1.04) mg/dL Estimated GFR > 60 (>60) mL/min BUN/Creatinine Ratio 26.4 H (6-22) Glucose 157 H (70-100) mg/dL Calcium 9.2 (8.4-10.2) mg/dL Magnesium 1.9 (1.6-2.3) mg/dL Total Bilirubin 0.9 (0.2-1.3) mg/dL AST 33 (14-36) IU/L ALT 34 (<35) IU/L Alkaline Phosphatase 79 (38-126) U/L Total Creatine Kinase 129 (30-135) U/L Troponin I < 0.012 (0.01-0.034) ng/mL Total Protein 7.4 (6.3-8.2) g/dL Albumin 4.2 (3.5-5.0) g/dL Globulin 3.2 (1.7-4.1) g/dL Albumin/Globulin Ratio 1.3 (1.0-2.8) Lipase 53 (23-300) U/L Point of Care Testing Glucose POC 176 Point of care testing: Point of Care Testing Glucose POC 176 ECG Data Interpretation: Normal sinus rhythm at a rate of 93 beats per minute. Normal axis, no ST T wave changes. Borderline prolonged QT, however the QT does appear to be less than half the RR interval Discharge Plan Departure Patient Disposition: Home Clinical Impression: Dizziness Instructions: DI for Dizziness-Nonvertigo Prescriptions: No Action prednisone 20 mg tablet 20 mg PO DAILY Qty: 5 0RF azelastine 137 mcg (0.1 %) aerosol,spray 1 spray intranasal BID Qty: 30 0RF Rx Instructions: administer into each nostril ACETAMINOPHEN (#TYLENOL) 0 mg PO PRN Qty: 0 CHOLECALCIFEROL (VITAMIN D3) (Vitamin D) 4,000 iu PO Q DAY Qty: 0 insulin aspart U-100 [Novolog U-100 Insulin aspart] 100 UNIT/1 ML solution 50 - 60 u SQ SEE INSTRUCTIONS Qty: 6 3RF [Jorje ContourTestStr] 5XD Qty: 200 1RF loratadine-pseudoephedrine [Claritin-D 24 Hour] 10 MG/240 MG tablet extended release 24 hr 1 tab PO QDAY Qty: 90 3RF levothyroxine 25 mcg tablet See Rx Instructions .ROUTE .COMPLEX Qty: 90 0RF Dose Instruction: TAKE 1 TABLET BY MOUTH EVERY MORNING Rx Instructions: TAKE 1 TABLET BY MOUTH EVERY MORNING albuterol sulfate 90 mcg/actuation HFA aerosol inhaler 2 puff inhalation Q6-8H PRN (Reason: for wheezing) Qty: 8.5 2RF spironolactone 50 mg tablet See Rx Instructions .ROUTE .COMPLEX Qty: 90 1RF Dose Instruction: TAKE 1 TABLET BY MOUTH DAILY Rx Instructions: TAKE 1 TABLET BY MOUTH DAILY fluoxetine 40 mg capsule See Rx Instructions .ROUTE .COMPLEX Qty: 90 3RF Dose Instruction: TAKE 1 CAPSULE BY MOUTH DAILY Rx Instructions: TAKE 1 CAPSULE BY MOUTH DAILY cyclobenzaprine 10 mg tablet 10 mg PO TID Qty: 14 0RF mupirocin 2 % ointment 1 applic topical BID Qty: 15 0RF Referrals: Ally Soriano MD [Primary Care Provider] - Stand Alone Forms: Patient Portal/API
[2023-04-03 11:03] LABS: Troponin I < 0.012 ng/mL (0.01-0.034)
== END 2023-04-03 12:08 | disposition home or self-care (01) ==
PROVIDERS: Emergency Provider Emergency Medicine; PCP Family Medicine
DX: R42 Dizziness and giddiness (principal); R11.0 Nausea; R20.2 Paresthesia of skin; E10.9 Type 1 diabetes mellitus without complications
CPT/HCPCS: 36415; 71045; 80053; 82550; 83690; 83735; 84484; 85025; 85610; 85730; 93005; 99283; 99284

== ENCOUNTER → 2023-07-02 09:09 | Outpatient (CLI) | payer OTHER, SELFPAY ==
[2023-07-02 10:46] LABS: Alanine Aminotransferase 35 IU/L (<35); Albumin Globulin Ratio 1.3 (1.0-2.8); Alkaline Phosphatase 82 U/L (38-126); Aspartate Aminotransferase 30 IU/L (14-36); Blood Urea Nitrogen 19 mg/dL (7-17); Calcium 9.6 mg/dL (8.4-10.2); Carbon Dioxide 27 mmol/L (22-32); Chloride 101 mmol/L (98-107); Estimated Glomerular Filt Rate > 60 mL/min (>60); Glucose 153 mg/dL (70-100); HEMOLYSIS < 15 (0-50); Potassium 4.6 mmol/L (3.4-5.1); Sodium 135 mmol/L (137-145)
[2023-07-02 10:53] LABS: Microalbumin Urine Random 2.1 mg/dL (0-1.6)
[2023-07-02 10:56] LABS: Creatinine Urine Random 313.9 mg/dL; Microalbumi Creatinin Ratio Ur 6.6 ug/mg CR (<30)
[2023-07-02 10:58] LABS: Free T4, Direct Thyroxine 1.25 ng/dL (0.78-2.19)
[2023-07-02 11:12] LABS: Thyroid Stimulating Hormone 1.46 uIU/mL (0.47-4.68)
[2023-07-02 12:09] LABS: Hemoglobin A1C% w Est Avg Glu 8.6 % (4.0-6.0)
== END ==
LOC: LAB 09:11
PROVIDERS: PCP Family Medicine; Referring Provider Internal Medicine; Visit Provider Internal Medicine
DX: E10.65 Type 1 diabetes mellitus with hyperglycemia (principal)
CPT/HCPCS: 36415; 80053; 82043; 82570; 83036; 84439; 84443

== ENCOUNTER → 2024-01-19 12:38 | Outpatient (CLI) | payer OTHER, SELFPAY ==
[2024-01-19 15:36] LABS: Creatinine Urine Random 113.04 mg/dL
[2024-01-19 15:40] LABS: Microalbumin Urine Random 1.1 mg/dL (0-1.6)
[2024-01-19 15:55] LABS: Free T4, Direct Thyroxine 1.04 ng/dL (0.78-2.19)
[2024-01-19 16:07] LABS: Alanine Aminotransferase 45 IU/L (<35); Albumin 4.2 g/dL (3.5-5.0); Albumin Globulin Ratio 1.4 (1.0-2.8); Alkaline Phosphatase 96 U/L (38-126); Aspartate Aminotransferase 43 IU/L (14-36); BUN Creatinine Ratio 21.3 (6-22); Bilirubin Total 0.8 mg/dL (0.2-1.3); Blood Urea Nitrogen 20 mg/dL (7-17); Calcium 9.3 mg/dL (8.4-10.2); Carbon Dioxide 24 mmol/L (22-32); Chloride 96 mmol/L (98-107); Cholesterol 146 mg/dL (140-199); Estimated Glomerular Filt Rate > 60 mL/min (>60); Glucose 477 mg/dL (70-100); HDL Cholesterol 94 mg/dL (40-60); HEMOLYSIS 33 (0-50); LDL Cholesterol Calculated 27 mg/dL (<100); Sodium 129 mmol/L (137-145); Total Protein 7.2 g/dL (6.3-8.2); Triglycerides 127 mg/dL (35-150)
== END ==
LOC: LAB 12:40
PROVIDERS: PCP Family Medicine; Referring Provider Internal Medicine; Visit Provider Internal Medicine
DX: E10.65 Type 1 diabetes mellitus with hyperglycemia (principal)
CPT/HCPCS: 36415; 80053; 80061; 82043; 82570; 83036; 84439; 84443

== ENCOUNTER → 2024-05-11 12:38 | Outpatient (CLI) | payer OTHER, SELFPAY ==
[2024-05-11 13:22] LABS: BUN Creatinine Ratio 22.9 (6-22); Blood Urea Nitrogen 19 mg/dL (7-17); Calcium 9.7 mg/dL (8.4-10.2); Carbon Dioxide 26 mmol/L (22-32); Chloride 99 mmol/L (98-107); Estimated Glomerular Filt Rate > 60 mL/min (>60); Glucose 282 mg/dL (70-100); HEMOLYSIS < 15 (0-50); Potassium 4.3 mmol/L (3.4-5.1); Sodium 134 mmol/L (137-145)
[2024-05-11 13:41] LABS: Hemoglobin A1C% w Est Avg Glu 8.2 % (4.0-6.0)
== END ==
PROVIDERS: PCP Family Medicine; Referring Provider Internal Medicine; Visit Provider Internal Medicine
DX: E10.65 Type 1 diabetes mellitus with hyperglycemia (principal)
CPT/HCPCS: 36415; 80048; 83036